=== PATIENT | female | born 1965 | race Caucasian/White ===

== ENCOUNTER 2024-11-01 11:18 | Emergency (ER) | payer OTHER | END 2024-11-01 15:03 | disposition home or self-care (01) | LOC: DL.ED 11:18 | DX: S82.832A Other fracture of upper and lower end of left fibula, initial encounter for closed fracture (principal); W18.40XA Slipping, tripping and stumbling without falling, unspecified, initial encounter; Y93.89 Activity, other specified | CPT/HCPCS: 73562-LT; 73590-LT; 73610-LT; 99283 ==